=== PATIENT | female | born 2000 | race Caucasian/White ===

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

== ENCOUNTER → 2022-01-18 | Outpatient (CLI) | payer OTHER, SELFPAY ==
[2022-01-18 12:00] LABS: Erythrocyte Sedimentation Rate 29 mm/hr (0-30)
[2022-01-18 13:04] LABS: Follicle Stimulating Hormone 3.5 mIU/mL; Luteinizing Hormone 4.6 mIU/mL; Prolactin 18.5 ng/mL; Thyroid Stim Hormone (TSH) 1.16 uIU/mL (0.358-3.74)
[2022-01-21 19:30] LABS: Vitamin D 1,25-Dihydroxy 50.3 pg/mL (24.8-81.5)
== END | disposition home or self-care (01) ==
LOC: MFPLAB 10:24
PROVIDERS: PCP Family Medicine; Referring Provider Family Medicine; Visit Provider Family Medicine
DX: N92.6 Irregular menstruation, unspecified (principal); L68.0 Hirsutism
CPT/HCPCS: 36415; 82627; 82652; 83001; 83002; 84146; 84403; 84443; 85652; 82626

== ENCOUNTER → 2023-12-12 | Outpatient (CLI) | payer MEDICAID, SELFPAY ==
--- NOTE | 2023-12-12 13:12 | RAD_ITS ---
INDICATION: headaches. EXAMINATION/TECHNIQUE: X-RAY - XR Spine Cervical 4 or 5 Views COMPARISON: No relevant prior comparison study available FINDINGS: VERTEBRAE: Preserved vertebral body height. No fracture. No spondylolisthesis. Straightening of the normal cervical lordosis. No significant facet arthropathy. DISCS: Disc spaces are maintained. NECK SOFT TISSUES: No prevertebral soft tissue widening. LUNG APICES: Clear. RAD/Cerv Spine 4 or 5 Views IMPRESSION: No evidence of acute fracture or spondylolisthesis. Electronically Signed: He Marvin MD at 23:37 EDT ,
== END | disposition home or self-care (01) ==
LOC: MTRAD 13:12
PROVIDERS: PCP Family Medicine; Referring Provider Family Medicine; Visit Provider Family Medicine
DX: R51.9 Headache, unspecified (principal)
CPT/HCPCS: 72050

== ENCOUNTER → 2024-01-05 | Outpatient (CLI) | payer OTHER, MEDICAID, SELFPAY ==
--- NOTE | 2024-01-05 15:42 | MRI_ITS ---
STUDY: MRI BRAIN WITHOUT CONTRAST REASON FOR EXAM: Female, 23 years old. HEADACHES x4yrs TECHNIQUE: Standardized multiplanar fat and water weighted pulse sequences were obtained. COMPARISON: None. FINDINGS: Normal size of the ventricles and extra-axial spaces for the patient''s age. Normal white matter tracts of the supratentorial brain. There is no evidence for recent intracranial ischemia or other cause of cytotoxic edema on diffusion weighted imaging (DWI). Normal T2* images of the brain without demonstrated susceptibility artifact. There is no demonstrated hemosiderin stain. Normal bilateral basal ganglia. Normal thalami. There is no extra-axial fluid accumulation. Normal flow voids within the major intracranial circulation suggesting patency by spin echo criteria. Normal sella turcica, pituitary gland, infundibular stalk, optic chiasm and hypothalamus. Normal tectal plate and pineal gland. Normal midbrain, letty and medulla. Normal cerebellum. Normal basal cisterns. Normal bilateral temporal bones. Normal bilateral internal auditory canals. No demonstrated orbital abnormality, within the constraints of a routine brain study. Normal visualized paranasal sinuses. Normal calvarium and skull base. Normal visualized soft tissue structures. Normal visualized upper cervical spine. MRI/Brain without Contrast IMPRESSION: Normal unenhanced MRI of the brain. Electronically Signed: Thomas Kwong MD at 0:26 EDT ,
== END | disposition home or self-care (01) ==
PROVIDERS: PCP Family Medicine; Referring Provider Family Medicine; Visit Provider Family Medicine
DX: R51.9 Headache, unspecified (principal)
CPT/HCPCS: 70551

== ENCOUNTER → 2024-03-04 | Outpatient (CLI) | payer OTHER, MEDICAID, SELFPAY ==
--- NOTE | 2024-03-04 17:10 | RAD_ITS ---
EXAM: XR LUMBOSACRAL SPINE, 2 OR 3 VIEWS CLINICAL INDICATION: Dorsalgia, unspecified TECHNIQUE: Frontal and lateral views of the lumbar spine and sacrum. COMPARISON: No relevant prior studies available. FINDINGS: VERTEBRAE: S-shaped curvature of the spine, incompletely imaged. Posterior vertebral body height narrowing at L5 (relative to the anterior vertebral body height). 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 Preserved vertebral body height. No fracture. No significant facet arthropathy. No suspicious lytic or sclerotic lesions of bone. DISC SPACES: No acute findings. No significant arthritic changes or degenerative disc disease. GASTROINTESTINAL TRACT: Unremarkable as visualized. Included bowel gas pattern is non-obstructive. OTHER FINDINGS: No acute osseous abnormalities. 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 Electronically Signed: Don Appiah MD at 5:00 EST ,
--- NOTE | 2024-03-04 17:10 | RAD_ITS ---
INDICATION: Scoliosis, unspecified EXAMINATION/TECHNIQUE: X-RAY - XR Spine Thoracic 3 Views COMPARISON: Prior study dated: 1917 FINDINGS: VERTEBRAE: Preserved vertebral body height. No fracture. No spondylolisthesis. Preservation of the normal thoracic kyphosis. Mild levoscoliosis of the thoracolumbar junction DISCS: Disc spaces are maintained. INCLUDED CHEST/ABDOMEN: No acute abnormalities. RAD/Thoracic Spine 3 Views IMPRESSION: Mild scoliosis. Electronically Signed: Lux Garrido MD at 14:37 EST ,
== END | disposition home or self-care (01) ==
PROVIDERS: PCP Family Medicine
DX: M41.9 Scoliosis, unspecified (principal); M54.9 Dorsalgia, unspecified
CPT/HCPCS: 72072; 72100

== ENCOUNTER 2024-03-28 12:56 | Emergency (ER) | payer MEDICAID, SELFPAY ==
[2024-03-28 12:57] VITALS: BP 157/94; PULSE 76; RESP 16; TEMP 36.9; O2SAT 99; BMI 22.4
--- NOTE | 2024-03-28 14:11 | EDS_ITS ---
HPI History of Present Illness Chief Complaint: Abd Pain Informant: patient and parent Narrative Narrative: 23-year-old female presenting to the emergency room with upper abdominal pain. Patient states sometimes it feels like a band tightness in her upper abdomen. She notes that it is worse whenever she eats really anything. It has been present for about 3 weeks. No black or bloody stools. She has chronic daily migraines and does have Zofran which she has been using. She does note constipation which is not abnormal for her but her bowel movements have still been present. She denies any radiation of the pain. She went to urgent care and started omeprazole 20 mg twice a day as well as Zantac and has been on that for the past week without any change in symptomology. Mom notes that she has a history of a gastric ulcer but the patient herself is never been diagnosed with 1. She denies any fever. No history of colitis. No known pancreatic or biliary issues. [facility] Medical History (Updated 03/28/24 @ 16:[address] Alejo Stewart DO) Migraine Home Medications ?Medication ?Instructions ?Recorded ?Last Taken ?Type omeprazole 40 mg capsule,delayed 40 mg PO BID 14 days #28 caps 03/28/24 Unknown Rx release sucralfate 1 gram tablet (Carafate) 1 g PO Q6H 14 days #56 tabs 03/28/24 Unknown Rx Allergy/AdvReac Type Severity Reaction Status Date / Time cetirizine (From [facility]) AdvReac Intermediate Other Verified 03/28/24 14:57 Surgical History Watson teeth removed Social History Smoking Status: Never smoker ROS ROS ED Constitutional Constitutional ED: Denies chills, fever(s) or weight loss Eyes Eyes: Denies change in vision or diplopia ENT ENT ED: Denies ear pain, rhinorrhea or sore throat Cardiovascular Cardiovascular: Denies chest pain, orthopnea, palpitations or racing heartbeat Respiratory/Chest Respiratory/Chest: Denies cough, dyspnea or orthopnea Gastrointestinal Gastrointestinal: Reports abdominal pain, constipation and nausea; Denies diarrhea or vomiting Genitourinary Genitourinary ED: Denies dysuria, hematuria or urinary frequency Musculoskeletal Musculoskeletal: Denies arthralgias or myalgias Integumentary Denies abscess or rash Neurologic Neurologic: Denies headache(s) or weakness Psychiatric Psychiatric: Denies anxiety, depression, suicidal ideation or suicidal thoughts Endocrine Endocrinology: Denies polydipsia, polyphagia or polyuria Allergic/Immunologic Allergic/Immunologic ED: Denies mouth swelling, tongue swelling or urticaria EXAM Physical Exam Const Vital Signs: 03/28/24 12:57 03/28/24 14:56 Temperature 98.4 F Temperature Source Oral Pulse Rate 76 88 Respiratory Rate 16 16 Blood Pressure 157/94 H 121/78 H Blood Pressure Mean 115 92 Pulse Ox 99 98 Oxygen Delivery Method Room Air Room Air Positive well nourished and well developed General Appearance ED: well developed and NAD HEENT Reports normocephalic, head/scalp atraumatic and moist mucous membranes Eyes PERRL and EOMs intact bilaterally Neck no lymphadenopathy, supple and no JVD Resp normal respiratory effort and clear to auscultation bilaterally Cardio regular rate, regular rhythm and no murmurs GI Inspection: Negative for abdominal distention Auscultation: normoactive bowel sounds Palpation: soft and tender epigastric Back/Spine no CVA tenderness and normal ROM Extremity normal to inspection General Extremety ED: Negative for edema General Extremity: Negative for edema Neuro oriented x3 and CN's II-XII intact bilaterally Sensorium / Orientation: alert Motor Exam: strength 5/5 throughout Psych mental status grossly normal Mood & Affect: Negative for depressed or tearful Skin no rashes or lesions noted and no wounds MDM MDM MDM Narrative Medical decision making narrative: Differential diagnosis includes but not limited to acute gastritis GERD gastric ulcer pancreatitis biliary colic colitis anemia uremia Basic blood work was essentially normal including CBC BMP liver and lipase. Urinalysis negative test is negative. CT abdomen pelvis was negative. I have the patient take omeprazole 40 mg twice a day instead the 20 mg as well as start her on 4 times daily Carafate. I would recommend PCP follow-up and discussion for possible EGD with GI or surgery. Patient is comfortable with this plan return if worsening or concerns History & Record Review Discussion w/independent historian: Patient and Family (Mother) Lab Data Attestation: I reviewed the patient's lab results. Labs: Laboratory Results - last 24 hr 03/28/24 03/28/24 14:25 14:34 WBC 8.0 RBC 4.78 Hgb 14.1 Hct 43.0 MCV 90.0 MCH 29.5 MCHC 32.8 RDW Std Deviation 39.8 RDW Coeff of John 12.0 Plt Count 352 MPV 9.9 Immature Gran % (Auto) 0.400 Neut % (Auto) 78.2 H Lymph % (Auto) 15.5 L [place] % (Auto) 5.4 Eos % (Auto) 0.0 Baso % (Auto) 0.5 Absolute Neuts (auto) 6.3 Absolute Lymphs (auto) 1.24 Nucleated RBC % 0 Sodium 139 Potassium 3.8 Chloride 107 Carbon Dioxide 27.0 Anion Gap 5 BUN 7 Creatinine 1.06 H Estim Creat Clear Calc 75.54 Est GFR (MDRD) Af Amer 84 Est GFR (MDRD) Non-Af 69 BUN/Creatinine Ratio 6.6 L Glucose 90 Calcium 9.7 Total Bilirubin 0.40 Direct Bilirubin 0.12 AST 9 L ALT 13 Alkaline Phosphatase 50 Total Protein 8.5 H Albumin 4.6 Globulin 3.9 Lipase 26 Urine Color Straw Urine Clarity Clear Urine pH 7.0 Ur Specific [place] 1.010 Urine Protein Negative Urine Glucose (UA) Normal Urine Ketones Negative Urine Occult Blood 150 H Urine Nitrite Negative Urine Bilirubin Negative Urine Urobilinogen Normal Ur Leukocyte Esterase Negative Urine RBC 0 SEEN Urine WBC 0 SEEN Ur Squamous Epith Cells 0 SEEN Urine Bacteria 0 SEEN Urine Mucus 0 SEEN Urine Test Negative Radiography Diagnostic Testing: Clinical Impression(s) from Imaging Studies Abdomen/Pelvis CT 03/28/24 14:50 IMPRESSION: No acute findings. Electronically Signed: Faiza Paez MD at 15:27 EST , Discharge Plan Triage Chief Complaint: Abd Pain ED Provider: Alejo Stewart Dx/Rx/DC Orders Clinical Impression: Abdominal pain, Gastritis Instructions: Treating Gastritis, Understanding Gastritis Prescriptions: New sucralfate [Carafate] 1 gram tablet 1 g PO Q6H 14 Days Qty: 56 0RF omeprazole 40 mg capsule,delayed release(DR/EC) 40 mg PO BID 14 Days Qty: 28 0RF Primary Care Provider: Diya Rai Referrals: Friend,Saleem, DO [Med Staff - Active Staff] - As soon as possible (for GI evaluation) Diya Rai [employer] [Primary Care Provider] - As soon as possible Print Language: Urdu Disposition Disposition: Home, Self Care
[2024-03-28 14:40] LABS: Bacteria 0 SEEN /hpf (None Seen); Mucous, Urine 0 SEEN /hpf (<or=2+); Red Blood Cells-Urine 0 SEEN /hpf (0-5); Squamous Epithelial Cells - UA 0 SEEN /hpf (5-10); White Blood Cells 0 SEEN /hpf (0-5)
[2024-03-28 14:41] LABS: Absolute Lymphocyte Count 1.24 X10^3/uL (0.83-4.51); Absolute Neutrophil Count 6.3 X10^3/uL (2.0-7.7); Basophil# 0.04 X10^3/uL; Basophil% 0.5 % (0-1); Hemoglobin 14.1 g/dL (12.0-15.0); Lymphocyte # 1.24 X10^3/ul (0.83-4.51); Lymphocyte % 15.5 % (19-41); Mean Corp Hgb Conc 32.8 g/dL (32-36); Mean Corpuscular Hgb 29.5 pg (27.0-32.0); Mean Platelet Vol. 9.9 fl (6.2-12.0); Monocyte# 0.43 X10^3/uL; Monocyte% 5.4 % (0-10); NRBC Flagged by Analyzer 0 % (0-5); Neutrophil # 6.27 X10^3/uL (2.7-7.7); Neutrophil % 78.2 % (47-70); Platelet Count 352 K/mm3 (150-450); RBC Distribution Width SD 39.8 fl (35.1-43.9); Red Blood Count 4.78 M/mm3 (4.2-5.4)
[2024-03-28 14:43] LABS: Color, Urine Straw (Yellow); Glucose, Dipstick Normal (Normal); Ketone-Dipstick Negative (Negative); Leukocyte Esterase-Dipstick Negative /ul (Negative); Nitrite-Dipstick Negative (Negative); Occult Blood-Urine 150 /ul (Negative); Protein-Dipstick Negative (Negative); Urine Bilirubin Dipstick Negative (Negative); Urine Clarity Clear (Clear); Urine Urobilinogen Normal (Normal)
[2024-03-28 14:48] LABS: Internal QC Validated? YES +Cl - CLEAR BKGD; Pregnancy, Urine Negative Negative
--- NOTE | 2024-03-28 14:50 | CT_ITS ---
EXAM: CT Abdomen And Pelvis W/ Contrast Injection HISTORY: abdominal pain TECHNIQUE: Routine protocol CT abdomen pelvis. IV Contrast: IV 100mL Isovue-370 . Oral Contrast: without. Sagittal and coronal images were reconstructed. RADIATION DOSAGE (If Supplied By Facility): CTDIvol = ( 10.00 ) mGy, DLP = ( 499.87 ) mGycm Individualized dose optimization techniques were used for this CT. COMPARISON: None. LIMITATIONS: None. FINDINGS: LOWER CHEST: Lung bases are clear. LIVER: Unremarkable. GALLBLADDER/BILE DUCTS: Unremarkable. PANCREAS: Unremarkable. SPLEEN: Unremarkable. ADRENAL GLANDS: Unremarkable. KIDNEYS / URETERS: Unremarkable. BOWEL / MESENTERY: Unremarkable. No bowel obstruction. APPENDIX: Identified and normal. No evidence of acute appendicitis. PERITONEUM: No free air. No free fluid. VESSELS: Abdominal aorta is normal caliber. RETROPERITONEUM: Unremarkable. REPRODUCTIVE ORGANS: Unremarkable. BLADDER: Unremarkable. ABDOMINAL WALL: Unremarkable. BONES: No acute abnormality. Bilateral pars defects at L5 with grade 1 spondylolisthesis L5-S1. OTHER: None. CT/Abdomen/Pelvis W IV Cont ONLY IMPRESSION: No acute findings. Electronically Signed: Faiza Paez MD at 15:27 [facility] ,
[2024-03-28] MEDS: Ondansetron 4 MG/2 ML Vial IV (14:53)
[2024-03-28 14:56] VITALS: BP 121/78; PULSE 88; RESP 16; O2SAT 98
[2024-03-28 14:58] LABS: AST(SGOT) 9 U/L (15-37); Alanine Aminotransfer ALT/SGPT 13 U/L (13-56); Albumin, Serum 4.6 g/dL (3.2-5.0); Alkaline Phosphatase 50 U/L (45-117); Anion Gap 5 (5-15); BUN 7 mg/dL (7-18); BUN/Creat Ratio 6.6 RATIO (10-20); Bilirubin, Direct 0.12 mg/dL (0.00-0.30); Calcium,Total 9.7 mg/dL (8.5-10.1); Chloride 107 mmol/L (98-107); Creatinine, Serum 1.06 mg/dL (0.55-1.02); EST Glomerular Filtration Rate 69 mL/min (>60); Est Glom Filt Rate - Afr Amer 84 mL/min (>60); Estimated Creatinine Clearance 75.54 ml/min; Globulin 3.9 g/dL (2.2-4.2); Glucose 90 mg/dL (74-106); Lipase 26 U/L (13-75); Potassium 3.8 mmol/L (3.5-5.1); Protein, Total 8.5 g/dL (6.4-8.2); Sodium Level 139 mmol/L (136-145)
[2024-03-28 16:00] VITALS: BP 124/82; PULSE 84; RESP 16; O2SAT 98
[2024-03-28 16:31] VITALS: BP 124/82; PULSE 81; RESP 16; TEMP 36.4; O2SAT 98
== END 2024-03-28 16:31 | disposition home or self-care (01) ==
PROVIDERS: Emergency Provider Emergency Medicine; Visit Provider Emergency Medicine
DX: K29.70 Gastritis, unspecified, without bleeding (principal); G43.709 Chronic migraine without aura, not intractable, without status migrainosus; Z79.899 Other long term (current) drug therapy
CPT/HCPCS: 74177; 80048; 80076; 81001; 81025; 83690; 85025; 96374; 99283; Q9967; A4216; J2405

== ENCOUNTER → 2024-06-21 | Outpatient (CLI) | payer MEDICAID, SELFPAY ==
[2024-06-21 10:13] LABS: Absolute Lymphocyte Count 1.67 X10^3/uL (0.83-4.51); Absolute Neutrophil Count 3.9 X10^3/uL (2.0-7.7); Basophil# 0.05 X10^3/uL; Basophil% 0.8 % (0-1); Eosinophil# 0.07 X10^3/uL; Eosinophils% 1.1 % (0-5); Hematocrit 42.6 % (37-47); Hemoglobin 14.3 g/dL (12.0-15.0); Lymphocyte # 1.67 X10^3/ul (0.83-4.51); Lymphocyte % 26.1 % (19-41); Mean Corp Hgb Conc 33.6 g/dL (32-36); Mean Corpuscular Hgb 30.2 pg (27.0-32.0); Mean Corpuscular Volume 89.9 fL (81-99); Monocyte# 0.68 X10^3/uL; Monocyte% 10.6 % (0-10); NRBC Flagged by Analyzer 0 % (0-5); Neutrophil # 3.92 X10^3/uL (2.7-7.7); Neutrophil % 61.1 % (47-70); Platelet Count 387 K/mm3 (150-450); RBC Distribution Width CV 12.3 % (11.6-14.6); RBC Distribution Width SD 40.1 fl (35.1-43.9); Red Blood Count 4.74 M/mm3 (4.2-5.4); White Blood Count 6.4 K/mm3 (4.4-11.0)
[2024-06-21 10:23] LABS: Vitamin B12 181 pg/mL (211-911)
[2024-06-21 10:48] LABS: AST(SGOT) 9 U/L (15-37); Alanine Aminotransfer ALT/SGPT 17 U/L (13-56); Albumin, Serum 4.3 g/dL (3.2-5.0); Alkaline Phosphatase 43 U/L (45-117); Anion Gap 6 (5-15); BUN 11 mg/dL (7-18); BUN/Creat Ratio 10.9 RATIO (10-20); Calcium,Total 9.3 mg/dL (8.5-10.1); Chloride 104 mmol/L (98-107); Cholesterol 163 mg/dL (200); Creatinine, Serum 1.01 mg/dL (0.55-1.02); EST Glomerular Filtration Rate 73 mL/min (>60); Est Glom Filt Rate - Afr Amer 88 mL/min (>60); Globulin 4.3 g/dL (2.2-4.2); Glucose 96 mg/dL (74-106); High Density Lipoprotein 61 mg/dL; Magnesium 2.4 mg/dL (1.6-2.6); Potassium 3.9 mmol/L (3.5-5.1); Protein, Total 8.6 g/dL (6.4-8.2); Sodium Level 137 mmol/L (136-145); T4 Free Direct 0.97 ng/dL (0.76-1.46); Triglycerides 66 mg/dL; Very Low Density Lipoprotein 13 mg/dL (5-40)
== END | disposition home or self-care (01) ==
PROVIDERS: Referring Provider Physician Assistant Medical; Visit Provider Physician Assistant Medical
DX: K21.9 Gastro-esophageal reflux disease without esophagitis (principal); F41.1 Generalized anxiety disorder; G43.711 Chronic migraine without aura, intractable, with status migrainosus; L68.0 Hirsutism; I73.00 Raynaud's syndrome without gangrene
CPT/HCPCS: 36415; 80053; 80061; 82607; 83735; 84439; 84443; 85025

== ENCOUNTER → 2025-01-20 | Outpatient (CLI) | payer MEDICAID, SELFPAY ==
[2025-01-20 16:55] LABS: AST(SGOT) 14 U/L (<=31); Alanine Aminotransfer ALT/SGPT 8 U/L (<=34); Albumin, Serum 4.9 g/dL (3.5-5.0); Alkaline Phosphatase 50 U/L (35-104); Anion Gap 16 (5-15); BUN 12 mg/dL (4-19); BUN/Creat Ratio 11.9 RATIO (10-20); Calcium,Total 10.1 mg/dL (7.6-11.0); Carbon Dioxide 23.2 mmol/L (21.0-32.0); Chloride 99 mmol/L (98-108); Globulin 3.3 g/dL (2.2-4.2); Glucose 94 mg/dL (70-99); Magnesium 2.3 mg/dL (1.5-2.2); Potassium 4.4 mmol/L (3.3-5.1)
[2025-01-20 17:26] LABS: Vitamin B12 3469 pg/mL (180-914)
== END | disposition home or self-care (01) ==
LOC: MTLAB 11:12
PROVIDERS: Referring Provider Physician Assistant Medical; Visit Provider Physician Assistant Medical
DX: G43.711 Chronic migraine without aura, intractable, with status migrainosus (principal); E53.8 Deficiency of other specified B group vitamins; E28.2 Polycystic ovarian syndrome; L68.0 Hirsutism
CPT/HCPCS: 36415; 80053; 82607; 83735